=== PATIENT | female | born 1975 | race African-American/Black ===

== ENCOUNTER 2024-07-05 01:34 | Inpatient (IN) | payer OTHER ==
[~2024-07-05] VITALS: Ht 175.3 cm; Wt 93.5 kg
[2024-07-05 01:37] VITALS: O2SAT 100
[2024-07-05] MEDS: LORAZEPAM 2MG/ML INJ IV ONE (02:17)
[2024-07-05 02:23] LABS: BASOPHILS % 0.7 % (0.0-2.0); DIFFERENTIAL COMMENT 0; HEMATOCRIT. 33.9 % (36.0-48.0); HEMOGLOBIN. 10.6 g/dL (12.0-16.0); LYMPHOCYTES % 43.8 % (20.0-50.0); MEAN CORPUSCULAR HEMOGLOBIN 25.9 pg (28.0-32.0); MEAN CORPUSCULAR HGB CONC 31.4 g/dL (31.0-37.0); MEAN CORPUSCULAR VOLUME 82.6 fL (81.0-99.0); MEAN PLATELET VOLUME 9.7 fl (7.4-10.4); MONOCYTES % 6.7 % (2.0-8.0); NEUTROPHILS % 47.8 % (40.0-76.0); PLATELET 290 x1000/uL (130-400); RED BLOOD CELL COUNT 4.11 mill/uL (4.2-5.4); RED CELL DISTRIBUTION WIDTH 16.6 % (11.6-14.6); WHITE BLOOD COUNT 9.1 x1000/uL (4.5-11.0)
[2024-07-05] MEDS: SODIUM CHLORIDE 0.9% 1,000 ML IV ONE (02:34)
[2024-07-05] MEDS: DILTIAZEM HCL 5MG/ML 5ML VIAL IV ONE (02:38)
[2024-07-05 02:41] LABS: CHLORIDE 101 mEq/L (98-107); SODIUM 137 mEq/L (136-145)
[2024-07-05 02:42] LABS: CALCIUM 9.8 mg/dL (8.7-10.4); CARBON DIOXIDE 25 mEq/L (21-32)
[2024-07-05 02:47] LABS: GLUCOSE 206 mg/dL (70-105); UREA NITROGEN BLOOD 7 mg/dL (9-23)
[2024-07-05 02:48] LABS: TROPONIN I HIGH SENSITIVITY 8 ng/L (3.0-34)
[2024-07-05 04:03] LABS: HCG SCREEN NEGATIVE
[2024-07-05] MEDS: IOHEXOL-350 100 ML BOTTLE ONE (05:06)
[2024-07-05 08:00] VITALS: BP 120/69; PULSE 106; RESP 20; TEMP 36.3918; O2SAT 100
[2024-07-05 10:34] VITALS: BP 120/69; PULSE 106; RESP 19; TEMP 36.3918; O2SAT 100
[2024-07-05 10:38] VITALS: BP 120/69; PULSE 106; RESP 19; TEMP 36.418; TEMP 36.4180
[2024-07-05] MEDS ORDERED: CLONIDINE 0.1MG TABLET PO PRN (11:00)
[2024-07-05] MEDS ORDERED: IPRATROPIUM/ALBUTEROL 0.5-3(2.5)MG/3ML NEB HHN PRN (11:00)
[2024-07-05] MEDS ORDERED: DOCUSATE SODIUM 100MG CAPSULE PO PRN (11:00)
[2024-07-05] MEDS ORDERED: ACETAMINOPHEN 325MG TABLET PO PRN ×2 (11:00)
[2024-07-05] MEDS ORDERED: DEXTROSE 50% WATER 50ML SYRINGE IV PRN (11:00)
[2024-07-05] MEDS ORDERED: ONDANSETRON HCL 4MG/2ML INJ IV PRN (11:00)
[2024-07-05] MEDS: POTASSIUM CHLORIDE 20MEQ TABLET SR PO NR (11:28)
[2024-07-05] MEDS: SODIUM CHLORIDE 0.45% 1,000 ML IV SCH (11:31)
[2024-07-05] MEDS: BLOOD SUGAR DIAGNOSTIC STRIP TEST SCH (12:42)
[2024-07-05] MEDS: INSULIN LISPRO 100 UNITS/ML SUBCUT SCH (13:10)
[2024-07-05 15:27] VITALS: PULSE 106
[2024-07-05] MEDS: DILTIAZEM HCL 30MG TABLET PO SCH (15:27)
[2024-07-05 16:07] LABS: BASOPHILS % 0.2 % (0.0-2.0); HEMATOCRIT. 34.1 % (36.0-48.0); HEMOGLOBIN. 10.7 g/dL (12.0-16.0); LYMPHOCYTES % 13.1 % (20.0-50.0); MEAN CORPUSCULAR HGB CONC 31.4 g/dL (31.0-37.0); MEAN CORPUSCULAR VOLUME 82.9 fL (81.0-99.0); MEAN PLATELET VOLUME 10.1 fl (7.4-10.4); MONOCYTES % 5.4 % (2.0-8.0); NEUTROPHILS % 81.3 % (40.0-76.0); PLATELET 242 x1000/uL (130-400); RED BLOOD CELL COUNT 4.12 mill/uL (4.2-5.4); RED CELL DISTRIBUTION WIDTH 17.6 % (11.6-14.6); WHITE BLOOD COUNT 10.5 x1000/uL (4.5-11.0)
[2024-07-05 16:15] LABS: PROTHROMBIN TIME 10.7 sec (9.6-11.0)
[2024-07-05 16:24] LABS: CALCIUM 9.9 mg/dL (8.7-10.4); CHLORIDE 106 mEq/L (98-107); POTASSIUM 4.1 mEq/L (3.5-5.1); SODIUM 139 mEq/L (136-145)
[2024-07-05 16:25] LABS: CARBON DIOXIDE 25 mEq/L (21-32)
[2024-07-05 16:26] LABS: CREATINE KINASE MB FRACTION 1.5 ng/mL (0.5-3.6); CREATININE 0.8 mg/dL (0.6-1.0); GLUCOSE 108 mg/dL (70-105)
[2024-07-05 16:28] LABS: ALANINE AMINOTRANSFERASE < 7 IU/L (10-49); ALBUMIN 4.5 g/dL (3.2-4.8); ASPARTATE AMINOTRANSFERASE 18 IU/L (<34); CREATINE KINASE 117 IU/L (34-145)
[2024-07-05 16:29] LABS: BILIRUBIN DIRECT 0.2 mg/dL (<=3.0); BILIRUBIN TOTAL 0.9 mg/dL (0.1-1.0); PHOSPHORUS 3.3 mg/dL (2.5-4.9)
[2024-07-05 16:30] LABS: UREA NITROGEN BLOOD 5 mg/dL (9-23)
[2024-07-05 16:32] LABS: PROTEIN TOTAL 8.1 g/dL (6.0-8.3)
[2024-07-05 16:36] LABS: ETHANOL BLOOD < 10 mg/dL (<10); TROPONIN I HIGH SENSITIVITY 74 ng/L (3.0-34)
[2024-07-05] MEDS ORDERED: ENOXAPARIN 30MG/0.3ML SYR SUBCUT SCH (21:00)
[2024-07-05] MEDS ORDERED: IOHEXOL-350 100 ML BOTTLE ONE (23:12)
[2024-07-06] MEDS ORDERED: PANTOPRAZOLE SODIUM 40 MG/VIAL IV SCH (09:00)
[2024-07-06] MEDS ORDERED: ASPIRIN 81MG TABLET PO SCH (09:00)
== END 2024-07-05 16:15 | disposition left against medical advice (07) | DRG 918 ==
LOC: ER 01:34 → EDBEDREQTM 03:52 → EDBEDREQ 03:52 → 7WST 09:58
PROVIDERS: ADMIT Internal Medicine; ATTEND Internal Medicine
DX: T40.711A Poisoning by cannabis, accidental (unintentional), initial encounter (principal); Y92.89 Other specified places as the place of occurrence of the external cause; Z79.899 Other long term (current) drug therapy; Z53.29 Procedure and treatment not carried out because of patient's decision for other reasons; Z20.822 Contact with and (suspected) exposure to COVID-19
CPT/HCPCS: 36415; 71045; 71275; 80048; 80076; 80320; 82550; 82553; 83036; 83735; 83880; 84100; 84443; 84484; 84703; 85025; 85379; 87426; 93005; 93970; 99291; J2060; J3490; J7030; Q9967; G0480